=== PATIENT | female | born 1970 | race Caucasian/White ===

== ENCOUNTER 2025-01-05 05:05 | Emergency (ER) | payer OTHER, SELFPAY ==
[2025-01-05 05:08] VITALS: BP 190/115
[2025-01-05 06:04] VITALS: BMI 56.7
--- NOTE | 2025-01-05 06:05 | ED.GENMED ---
History of Present Illness
General
Chief Complaint: Flank Pain
Time Seen by Provider: 01/05/25 06:02
History of Present Illness
History of Present Illness:
FOCUSED PAST MEDICAL HISTORY
- Kidney stones, anxiety
REVIEW OF OLD RECORDS
- I reviewed records, in 2012, the patient had a 5 mm partially obstructing stone in the proximal left ureter
Note:
CHIEF COMPLAINT(S)
Suspected kidney stone on the right side.
HISTORY OF PRESENT ILLNESS
The patient is a 55-year-old female with a history of kidney stones, presenting with right-sided pain suggestive of a kidney stone. She reports that the pain started abruptly at 10:30 PM last night and has been consuming a considerable amount of
water since then in response. The pain is more localized to the side rather than the back or front. The patient voluntarily mentioned she had a previous kidney stone on the left side in 2012 but has not had any related ER visits since then. The
current pain is not as severe as her last episode. The patient mentions having taken 2000 mg of acetaminophen at 4:30 AM but declines additional pain medications or intravenous intervention, stating she manages the discomfort well. She denies
experiencing chest pain, fever, vomiting, nausea, or any rash. No aggravation of pain with torso twisting or movement, leading to consideration of a potential musculoskeletal issue.
EXTERNAL RECORDS REVIEWED
Previous ER visit record in 2012 indicating a left-sided kidney stone.
PHYSICAL EXAM
General: Alert, no acute distress. Appears comfortable, elevated BMI
Skin: Warm, dry.
Head: Normocephalic, atraumatic.
Neck: Supple, trachea midline.
Eyes, Ears, Nose, Mouth, and Throat: Oral mucosa moist.
Cardiovascular: Normal peripheral perfusion, No edema.
Respiratory: Respirations are non-labored. Breath sounds are clear and equal
Gastrointestinal: Abdomen nondistended. No tenderness on palpation. No CVA tenderness bilaterally
Back: Normal range of motion, Normal alignment.
Musculoskeletal: Normal range of motion, normal strength. No pain exacerbation with movement.
Neurological: Alert and oriented to person, place, time, and situation, No focal neurological deficit observed.
Psychiatric: Cooperative, appropriate mood & affect.
PROBLEM LIST
Acute: Suspected kidney stone on the right side.
PLAN
1. Proceed with a computed tomography (CT) scan to evaluate for kidney stones and other potential causes of pain.
2. No immediate need for intravenous pain medication, as the patient is managing pain with acetaminophen.
3. Monitor symptoms and await CT results for further evaluation and management.
DIFFERENTIAL DIAGNOSIS
The differential diagnosis includes, in no particular order and is not limited to:
1. Kidney stone
2. Musculoskeletal pain
3. Urinary tract infection
4. Hydronephrosis
5. Pyelonephritis
6. Gallstones
7. Appendicitis
8. Ovarian cyst
9. Herpes zoster (shingles) without rash
10. Gastrointestinal causes such as constipation or bowel obstruction
RADIOLOGY
- CT imaging obtained
LABS
- Urinalysis shows 16-20 white cells but also has greater than 30 squamous epithelial cells, 3+ blood noted
UPDATE
-SUMMARY OF ENCOUNTER
The patient, a 55-year-old female with a history of kidney stones, presented with right-sided pain suggestive of a kidney stone. A computed tomography (CT) scan confirmed the presence of a stone measuring approximately three millimeters in the right
ureter, between the kidney and the bladder. Urinalysis showed questionable signs of infection, though it was possibly misleading due to skin cells in the sample. There are no overwhelming symptoms of an infection like fever or burning during
urination, and thus no antibiotics were initiated at this time. A urine culture is pending to further evaluate for any infection. Additionally, a decent-sized cyst near the right ovary was noted on the CT scan, with a recommendation for follow-up
with a display carver and possibly an ultrasound. The patient has not seen a display carver in several years but will be advised to follow up.
ASSESSMENT
The patient appears to have a kidney stone in the right ureter. There is also a cyst near the right ovary that may require further evaluation. Signs of a potential infection are present but need confirmation via a pending urine culture.
PLAN
1. Prescribe acetaminophen/oxycodone (Percocet) for severe pain and recommend the use of ibuprofen (Motrin) for kidney stone-related discomfort.
2. Follow up on urine culture results to assess the need for antibiotics if signs of a urinary tract infection are confirmed.
3. Recommend follow-up with a local display carver for further evaluation of the ovarian cyst via ultrasound.
4. Provide contact information for a local urologist for continued management of the kidney stone.
INDEPENDENT REVIEW OF LABS AND INTERPRETATION OF TESTS
My independent review of the urinalysis shows potential signs of infection but these could be attributed to the presence of skin cells. A urine culture is pending.
PATIENT EDUCATION AND COUNSELING
The patient was educated on the kidney stone diagnosis, the potential for passing the stone, and the importance of hydration. The patient was informed about the cystic finding and the need for gynecological follow-up. Pain management options were
discussed, highlighting the use of acetaminophen/oxycodone for severe pain and ibuprofen for general discomfort.
FOLLOW-UP INSTRUCTIONS
The patient should schedule an appointment with a display carver for evaluation of the ovarian cyst and consider an ultrasound. Follow-up with a urologist was recommended for continued care of the kidney stone. The patient will be contacted about the
urine culture results if treatment is necessary.
MEDICATION RECONCILIATION
1. Prescribed acetaminophen/oxycodone (Percocet) for severe pain.
2. Advised the use of ibuprofen (Motrin) for kidney-related pain.
MEDICAL DECISION MAKING
-Complexity of Data Reviewed: Chronic conditions affecting care include a history of kidney stones. The differential diagnosis includes kidney stone, musculoskeletal pain, urinary tract infection, hydronephrosis, pyelonephritis, gallstones,
appendicitis, ovarian cyst, herpes zoster without rash, and gastrointestinal causes such as constipation or bowel obstruction.
-Data:
Category 1
External records reviewed: Previous ER visit record in 2012 indicating a left-sided kidney stone.
My independent interpretation of the CT scan shows a 3mm kidney stone in the right ureter and a cyst near the right ovary.
Category 2
Clinical information was obtained through independent interpretation of radiology results.
-Risk:
Prescription medication was prescribed: acetaminophen/oxycodone for pain management.
Consideration of Admission/Observation: Escalation of care including admission/observation was considered given the complexity and risk of the patients presenting complaint, exam findings, and her underlying comorbidities. However, ultimately I feel
the patient is safe for outpatient management with close follow-up. Reasoning: Work-up reassuring, does not reveal any acute life/organ threatening processes, patients symptoms well-controlled upon reevaluation, reexamination is reassuring, vitals
are stable, patient agreeable with discharge, reliable for follow-up.
DIAGNOSIS
1. Ureteral stone
Past History
Past History
ED Past Medical History: Other (Kidney stone ); Negative CAD
ED Past Surgical History: and Urological
Social History
Tobacco: Non-smoker
Alcohol: Occasional
Personal:
Living: with family
Employment: Not employed
Family History
Family History: Negative Diabetes, Hypertension, Early CAD, Asthma or Cancer
Phy Exam
Physical Exam
Physical Exam:
See HPI
Course
Orders/Labs/Results
Orders:
Orders
01/05/25 06:09
Urinalysis Reflex To Culture Urgent
Date Specimen was Collected: 01/05/25
Time Specimen was Collected: 06:04
Urine Microscopic Reflex Cult Urgent
Urine Culture Urgent
HERIBERTO Source: U
Specimen Description:
Date Specimen was Collected: 01/05/25
Time Specimen was Collected: 06:04
01/05/25 06:12
CT Abd/pel Without Iv Or Oral Urgent
Comment:
Reason For Exam: R flank pain
Abnormal Lab Results
01/05/25
06:09
Ur Occult Blood Reflex 3+ A
(Negative)
Leukocyte Esterase Rfl 3+ A
(Negative)
Urine WBC (Reflex) 16-20 A /HPF
(0-5)
Urine Bacteria (Reflex) Moderate A
(Negative)
Urine Albumin (Reflex) 2+ A
(Neg - Trace)
Vital Signs
Initial and Last Documented VS:
Initial Vital Signs
Temp Pulse Resp BP Pulse Ox
36.7 C 105 20 190/115 95
01/05/25 05:08 01/05/25 05:08 01/05/25 05:08 01/05/25 05:08 01/05/25 05:08
Last Documented Vital Signs
Temp Pulse Resp BP Pulse Ox
36.7 C 102 16 140/94 96
01/05/25 05:08 01/05/25 06:15 01/05/25 06:15 01/05/25 06:15 01/05/25 06:15
*Pulse Oximetry
SaO2: 95
Oxygen Mode of Delivery: Room air
Patient hypoxic: no
*Critical Care Note
Total Time (30-74mins, 75-104mins- exclusive of procedures): Not Applicable
ED Attending Note
-
Portions of this chart may have been created with voice recognition software.� Occasional wrong word or��sound alike� substitutions may have occurred due to the inherent limitations of voice recognition software.
Discharge Plan
Departure
Patient Disposition: Home (Routine Discharge)
Date of Disposition: 01/05/25
Time of Disposition: 07:35
Patient with high blood pressure during this ER visit?: Yes
Discharge Problem:
Right ureteral stone
Prescriptions:
New
oxycodone-acetaminophen [Percocet] 5-325 mg tablet
1 - 2 tab PO Q8H PRN (Reason: Pain) Qty: 14 0RF
No Action
meloxicam 15 mg Tablet
15 mg PO DAILY
amlodipine 5 mg Tablet
5 mg PO DAILY
irbesartan 300 mg Tablet
300 mg PO DAILY
escitalopram oxalate 10 mg Tablet
10 mg PO DAILY
bupropion HCl 150 mg Tablet Extended Release 24 Hr
150 mg PO DAILY
Referrals:
Adina Crooks MD [Active, Gynecology]
Gilbert Gunn MD [Active, Urology]
Activity Restrictions/Additional Instructions:
The CAT scan shows a 3 mm kidney stone in the right ureter the urinalysis showed only questionable signs of infection�you will be notified only if the urine culture clearly shows signs of infection. I recommend 3-4 [id number] ibuprofen
(Motrin) every 8 hours with food for a few days. Return here if worse. I have also given the contact information for a local urologist, Dr. Gunn. The CAT scan also shows a 'benign appearing hyperdense right renal cystic lesion increased in size
from 2012 likely a proteinaceous or hemorrhagic cyst'. The CAT scan also shows a right adnexal cyst measuring 7.5 cm�consider pelvic ultrasound'�follow-up with your display carver for this- I have given the contact info for Dr. Crooks. You could
also strain your urine (please give patient a strainer).
Interventions
Interventions:
*Risk Screen - Suicide Last Done: 01/05/25 05:08
*General Assessment Last Done: 01/05/25 05:08
*Neglect/Abuse Screening Last Done: 01/05/25 05:08
*ED- Fall Risk Assessment Last Done: 01/05/25 06:07
*ED COVID-19 Vaccine History Last Done: 01/05/25 06:07
*ED Influenza Vaccine History Last Done: 01/05/25 06:07
YJ-Rpbkky-Vxxttztjaz Assessment Last Done: 01/05/25 06:15
ED-Female Genitourinary Assessment Last Done: 01/05/25 06:15
Discharge Date and Time
Print Language: INDONESIAN
--- NOTE | 2025-01-05 06:07 | EDRN ---
Pt thinks she has a kidney stone. Pt says it is not as bad as previous kidney stones. Pain in R flank started 2229 last night. Pain comes and goes. No n/v/d/c, fever/chills/cough, urinary symptoms.
[2025-01-05 06:15] VITALS: BP 140/94
[2025-01-05 06:29] LABS: Urine Character Slightly Cloudy (Clear)
[2025-01-05 06:39] LABS: Urine Squamous Cell >30 /LPF (Few)
[2025-01-05 06:40] LABS: Urine White Cell 16-20 /HPF (0-5)
[2025-01-05 06:41] LABS: Urine Red Blood Cell 0-2 /HPF (0-2)
== END 2025-01-05 08:24 | disposition home or self-care (01) ==
LOC: EMR 05:05
PROVIDERS: EMERGENCY PHYSICIAN Emergency Medicine; FAMILY PHYSICIAN Nurse Practitioner Family
DX: N20.2 Calculus of kidney with calculus of ureter (principal); F41.9 Anxiety disorder, unspecified; Z82.49 Family history of ischemic heart disease and other diseases of the circulatory system; Z87.442 Personal history of urinary calculi
CPT/HCPCS: 99284; 74176; 81003; 81015; 87086

== ENCOUNTER → 2025-01-13 10:15 | Outpatient (REF) | payer OTHER, SELFPAY | LOC: WDC 10:15 | PROVIDERS: ATTENDING PHYSICIAN Internal Medicine | DX: R22.31 Localized swelling, mass and lump, right upper limb (principal) | CPT/HCPCS: 76642; 77062; 77066 ==

== ENCOUNTER → 2025-01-22 09:47 | Outpatient (REF) | payer OTHER, SELFPAY | LOC: RAD 09:47 | PROVIDERS: ATTENDING PHYSICIAN Obstetrics & Gynecology; FAMILY PHYSICIAN Family Medicine | DX: N83.201 Unspecified ovarian cyst, right side (principal) | CPT/HCPCS: 76830; 76856 ==